=== PATIENT | female | born 1955 | race Hispanic/Latino ===

== ENCOUNTER 2022-08-10 02:14 | Emergency (ER) | payer BC, OTHER ==
[~2022-08-10] VITALS: Ht 154.9 cm; Wt 70.3 kg
[~2022-08-10 02:14] MED LIST: ATORVASTATIN CA20 MG PO; CICLOPIROX15 GM TOP; LOSARTAN POTAS100 MG PO; PANTOPRAZOLE SO40 MG PO; PREMARIN0.625 MG PO
[2022-08-10] MEDS ORDERED: DIPHENHYDRAMINE HCL INJ 50 MG/ML VIAL IV STA (02:23)
[2022-08-10] MEDS ORDERED: METOCLOPRAMIDE HCL 10 MG/2ML VIAL IV STA (02:23)
[2022-08-10] MEDS ORDERED: KETOROLAC TROMETHAMINE 30 MG/ML VIAL IV STA (02:23)
[2022-08-10] MEDS ORDERED: SODIUM CHLORIDE 0.9% 1000ML 1,000 ML IV STA (02:23)
[2022-08-10 02:40] LABS: BASOPHILS % 0.8 % (0.0-1.0); EOSINOPHILS # (AUTO) 0.1 (0.0-0.4); EOSINOPHILS % 3.7 % (0.0-6.0); HEMATOCRIT 38.8 % (34.2-44.1); HEMOGLOBIN 13.1 g/dL (12.0-16.0); LYMPHOCYTES # (AUTO) 1.6 (1.0-3.2); LYMPHOCYTES % 41.3 % (18.0-39.1); MEAN CORPUSCULAR HGB CONC 33.8 g/dL (31-35); MONOCYTES # (AUTO) 0.4 (0.2-0.8); MONOCYTES % 10.5 % (4.4-11.3); NEUTROPHILS # (AUTO) 1.7 (2.1-6.9); NEUTROPHILS % 43.7 % (38.7-80.0); PLATELET COUNT 167 x10e3/uL (140-360); RED BLOOD COUNT 4.51 x10e6/uL (3.6-5.1); RED CELL DISTRIBUTION WIDTH 13.2 % (11.7-14.4)
[2022-08-10 03:02] LABS: ALBUMIN/GLOBULIN RATIO 1.1 (0.8-2.0); ANION GAP 13.5 mmol/L (8-16); CALCIUM 9.9 mg/dL (8.4-10.2); CREATININE, SERUM 0.78 mg/dL (0.57-1.11); POTASSIUM 3.5 mmol/L (3.5-5.1)
[2022-08-10] MEDS ORDERED: FIORICET 50-301 EACH PO (03:25)
[2022-08-10 03:31] VITALS: BP 145/78; PULSE 88; RESP 16; TEMP 98.2; O2SAT 100
== END 2022-08-10 03:32 | disposition home or self-care (01) ==
LOC: ER 02:23
DX: H57.12 Ocular pain, left eye (principal); R51.9 Headache, unspecified; Z85.72 Personal history of non-Hodgkin lymphomas
CPT/HCPCS: 36415; 70450; 80053; 85025; 99284; J1200; J1885; J2765; J7030

== ENCOUNTER 2023-03-14 14:51 | Observation (INO) | payer BC, OTHER ==
[~2023-03-14] VITALS: Ht 154.9 cm; Wt 70.3 kg
[~2023-03-14 14:51] MED LIST changes: +FIORICET 50-301 EACH PO
[2023-03-14] MEDS ORDERED: SODIUM CHLORIDE 0.9% 1000ML 1,000 ML IV STA (15:38)
[2023-03-14] MEDS ORDERED: ONDANSETRON HCL INJ 2MG/ML 2ML 2 MG/ML VIAL IV STA (15:38)
[2023-03-14 15:51] LABS: BASOPHILS % 0.2 % (0.0-1.0); EOSINOPHILS % 0.5 % (0.0-6.0); HEMATOCRIT 43.3 % (34.2-44.1); HEMOGLOBIN 14.4 g/dL (12.0-16.0); LYMPHOCYTES # (AUTO) 1.3 (1.0-3.2); LYMPHOCYTES % 23.4 % (18.0-39.1); MEAN CORPUSCULAR HEMOGLOBIN 29.7 pg (28-32); MEAN CORPUSCULAR HGB CONC 33.3 g/dL (31-35); MEAN CORPUSCULAR VOLUME 89.3 fL (81-99); MONOCYTES # (AUTO) 0.4 (0.2-0.8); NEUTROPHILS # (AUTO) 3.9 (2.1-6.9); NEUTROPHILS % 68.7 % (38.7-80.0); PLATELET COUNT 179 x10e3/uL (140-360); RED BLOOD COUNT 4.85 x10e6/uL (3.6-5.1); RED CELL DISTRIBUTION WIDTH 12.6 % (11.7-14.4); WHITE BLOOD COUNT 5.61 x10e3/uL (4.8-10.8)
[2023-03-14 15:54] LABS: COLOR,URINE YELLOW (YELLOW)
[2023-03-14 15:55] LABS: BILIRUBIN,URINE NEGATIVE (NEGATIVE); GLUCOSE, URINE NEGATIVE (NEGATIVE); KETONES,URINE NEGATIVE (NEGATIVE); LEUKOCYTE ESTERASE ,URINE NEGATIVE (NEGATIVE); NITRITE,URINE NEGATIVE (NEGATIVE); PH,URINE 7.5 (5 - 7); PROTEIN,URINE DIPSTICK NEGATIVE (NEGATIVE); URINE UROBILINOGEN 0.2 mg/dL (0.2 - 1)
[2023-03-14 15:56] LABS: INR 0.95; PROTHROMBIN TIME 12.9 seconds (11.9-14.5)
[2023-03-14 15:57] LABS: PARTIAL THROMBOPLASTIN TIME 28.6 seconds (23.8-35.5)
[2023-03-14 16:06] LABS: ALBUMIN 4.7 g/dL (3.5-5.0); ALBUMIN/GLOBULIN RATIO 1.1 (0.8-2.0); ANION GAP 16.3 mmol/L (8-16); BILIRUBIN,TOTAL 0.6 mg/dL (0.2-1.2); CALCIUM 10.5 mg/dL (8.4-10.2); CLARITY,URINE CLEAR (CLEAR); CREATININE, SERUM 0.84 mg/dL (0.57-1.11); EPITHELIAL CELLS,URINE RARE /LPF; MAGNESIUM 1.9 MG/DL (1.3-2.1); RBC,URINE 0-5 /HPF (0-5); TOTAL PROTEIN 8.9 g/dL (6.5-8.1)
[2023-03-14 16:07] LABS: POTASSIUM 3.3 mmol/L (3.5-5.1)
[2023-03-14 16:12] LABS: TROPONIN I 0.007 ng/mL (0-0.300)
[2023-03-14] MEDS ORDERED: KETOROLAC TROMETHAMINE 30 MG/ML VIAL IV STA (17:43)
[2023-03-14] MEDS ORDERED: ACETAMINOPHEN 325 MG TAB PO ONE (17:45)
[2023-03-14] MEDS ORDERED: ONDANSETRON HCL INJ 2MG/ML 2ML 2 MG/ML VIAL IV PRN (18:15)
[2023-03-14 20:00] VITALS: BP 148/85; PULSE 70; RESP 20; TEMP 97.8; O2SAT 97
[2023-03-15] VITALS (8 sets, daily range): BP systolic 106–160; BP diastolic 73–89; PULSE 63–75; RESP 17–20; TEMP 97.8–98.6; O2SAT 98–100
[2023-03-15 00:51] LABS: TROPONIN I 0.031 ng/mL (0-0.300)
[2023-03-15] MEDS: ACETAMINOPHEN 325 MG TAB PO PRN ×4 (04:30→22:15)
[2023-03-15 05:55] LABS: BASOPHILS % 0.3 % (0.0-1.0); EOSINOPHILS # (AUTO) 0.1 (0.0-0.4); EOSINOPHILS % 1.3 % (0.0-6.0); HEMATOCRIT 38.6 % (34.2-44.1); HEMOGLOBIN 12.8 g/dL (12.0-16.0); LYMPHOCYTES # (AUTO) 1.2 (1.0-3.2); LYMPHOCYTES % 32.9 % (18.0-39.1); MEAN CORPUSCULAR HEMOGLOBIN 29.7 pg (28-32); MEAN CORPUSCULAR HGB CONC 33.2 g/dL (31-35); MEAN CORPUSCULAR VOLUME 89.6 fL (81-99); MONOCYTES # (AUTO) 0.5 (0.2-0.8); MONOCYTES % 12.7 % (4.4-11.3); NEUTROPHILS % 52.8 % (38.7-80.0); PLATELET COUNT 146 x10e3/uL (140-360); RED BLOOD COUNT 4.31 x10e6/uL (3.6-5.1); RED CELL DISTRIBUTION WIDTH 12.6 % (11.7-14.4); WHITE BLOOD COUNT 3.71 x10e3/uL (4.8-10.8)
[2023-03-15 06:31] LABS: ALBUMIN 3.8 g/dL (3.5-5.0); ALBUMIN/GLOBULIN RATIO 1.2 (0.8-2.0); ANION GAP 10.5 mmol/L (8-16); BILIRUBIN,TOTAL 0.7 mg/dL (0.2-1.2); CALCIUM 9.4 mg/dL (8.4-10.2); CHOL/HDL RATIO 3.3 (3.0-3.6); CREATININE, SERUM 0.89 mg/dL (0.57-1.11); POTASSIUM 3.5 mmol/L (3.5-5.1)
[2023-03-15 07:05] LABS: TROPONIN I 0.005 ng/mL (0-0.300)
[2023-03-15 09:33] LABS: MAGNESIUM 1.9 MG/DL (1.3-2.1)
[2023-03-15] MEDS: ASPIRIN 81 MG ENTERIC COATED PO SCH (09:33)
[2023-03-15] MEDS: LOSARTAN POTASSIUM 100 MG TAB PO SCH (09:33)
[2023-03-15] MEDS: PANTOPRAZOLE SOD 40 MG TABEC PO SCH (09:34)
[2023-03-15] MEDS: ATORVASTATIN 20 MG TAB PO SCH (09:34)
[2023-03-15 09:54] LABS: THYROID STIMULATING HORMONE 3.282 uIU/mL (0.350-4.940)
[2023-03-15 15:47] LABS: TROPONIN I 0.005 ng/mL (0-0.300)
[2023-03-16] VITALS (7 sets, daily range): BP systolic 105–135; BP diastolic 52–89; PULSE 65–77; RESP 17–19; TEMP 97.8–98.4; O2SAT 95–100
[2023-03-16] MEDS ORDERED: ONDANSETRON HCL 4 MG ORAL DISINTEGRATING TAB PO PRN (08:45)
[2023-03-16] MEDS: ACETAMINOPHEN 325 MG TAB PO PRN (08:50)
[2023-03-16] MEDS: PANTOPRAZOLE SOD 40 MG TABEC PO SCH (08:52)
[2023-03-16] MEDS: ASPIRIN 81 MG ENTERIC COATED PO SCH (08:53)
[2023-03-16] MEDS: ATORVASTATIN 20 MG TAB PO SCH (08:53)
[2023-03-16] MEDS: LOSARTAN POTASSIUM 100 MG TAB PO SCH (08:53)
[2023-03-16 09:12] LABS: CALCIUM 9.3 mg/dL (8.7-10.3)
[2023-03-16] MEDS ORDERED: LORAZEPAM INJ 2 MG/ML VIAL IV ONE ×2 (09:30→13:15)
[2023-03-16] MEDS ORDERED: ECOTRIN81 MG PO (17:38)
== END 2023-03-16 18:05 | disposition home or self-care (01) ==
LOC: ER 15:12 → ERHOLD 18:13 → MED/SURG 20:14 → MED/SURG2 20:43
PROVIDERS: ADMIT Internal Medicine; ATTEND Internal Medicine
DX: R51.9 Headache, unspecified (principal); M54.2 Cervicalgia; R41.0 Disorientation, unspecified; M54.50 Low back pain, unspecified; K30 Functional dyspepsia; R20.0 Anesthesia of skin; R20.2 Paresthesia of skin; R07.89 Other chest pain; I11.9 Hypertensive heart disease without heart failure; E78.5 Hyperlipidemia, unspecified; R41.3 Other amnesia; M47.812 Spondylosis without myelopathy or radiculopathy, cervical region; I34.0 Nonrheumatic mitral (valve) insufficiency; I07.1 Rheumatic tricuspid insufficiency; R11.0 Nausea; Z88.6 Allergy status to analgesic agent; Z91.041 Radiographic dye allergy status; Z11.52 Encounter for screening for COVID-19; Z79.82 Long term (current) use of aspirin; Z79.899 Other long term (current) drug therapy; Z85.72 Personal history of non-Hodgkin lymphomas; Z92.21 Personal history of antineoplastic chemotherapy
CPT/HCPCS: 36415 ×2; 70450; 70551; 71045; 72125; 80053 ×2; 80061; 81001; 82550 ×2; 82607; 83735 ×2; 83970; 84443; 84484 ×2; 85025 ×2; 85610; 85730; 86140; 87086; 93005; 93306; 93880; 99284; G0378 ×3; J1885; J2060; J2405; J7030; S0164 ×2; U0002

== ENCOUNTER 2024-02-02 15:27 | Emergency (ER) | payer BC, OTHER ==
[~2024-02-02] VITALS: Ht 154.9 cm; Wt 69.4 kg
[~2024-02-02 15:27] MED LIST changes: +ECOTRIN81 MG PO
[2024-02-02] MEDS ORDERED: LOSARTAN-HCTZ1 EAC2 (15:41)
[2024-02-02] MEDS: ONDANSETRON HCL 4 MG ORAL DISINTEGRATING TAB PO ONE (16:22)
[2024-02-02] MEDS: TRAMADOL HCL 50 MG TAB PO ONE (16:22)
[2024-02-02] MEDS ORDERED: BACLOFEN10 MG PO (17:09)
[2024-02-02 17:11] VITALS: PULSE 74; RESP 16; TEMP 98.3; O2SAT 98
== END 2024-02-02 17:14 | disposition home or self-care (01) ==
LOC: FSED 15:31
DX: M50.30 Other cervical disc degeneration, unspecified cervical region (principal); V43.62XA Car passenger injured in collision with other type car in traffic accident, initial encounter; Y92.488 Other paved roadways as the place of occurrence of the external cause; M48.02 Spinal stenosis, cervical region; I10 Essential (primary) hypertension; E78.5 Hyperlipidemia, unspecified; K21.9 Gastro-esophageal reflux disease without esophagitis; Z85.72 Personal history of non-Hodgkin lymphomas
CPT/HCPCS: 70450; 72125; 99284; Q0162